=== PATIENT | male | born 1975 | race Caucasian/White ===

== ENCOUNTER → 2019-08-22 12:42 | Outpatient (CLI) | payer BC, SELFPAY ==
--- NOTE | ~2019-08-22 | XR_ITS ---
XR shoulder LT min 2V 08/22/2019 13:22 Indication: Cyst or bone growth on the shoulder Procedure: 4 views of the left shoulder Comparison: 05/22/2005 Findings: There is chronic acromioclavicular separation with multiple adjacent corticated ossific den sities, likely sequela of remote trauma and/or surgery. There is a developing osteophyte along the in ferior margin of the clavicle extending towards the scapula. No acute fracture or traumatic malalignm ent. Impression: 1: No acute bone or joint abnormality. 2: Chronic left acromioclavicular joint separation with associated adjacent loose bodies and developi ng inferior marginal osteophyte at the mid clavicle level. Reviewed, dictated and finalized at location A. AGE CENTER SUPERVISOR Impression: 1: No acute bone or joint abnormality. 2: Chronic left acromioclavicular joint separation with associated adjacent loo se bodies and developing inferior marginal osteophyte at the mid clavicle level .
== END ==
LOC: EXPCRAD 12:49
PROVIDERS: PCP Emergency Medicine; Visit Provider Emergency Medicine
DX: M19.012 Primary osteoarthritis, left shoulder (principal)
CPT/HCPCS: 73030

== ENCOUNTER 2020-03-01 06:02 | Inpatient (IN) | payer BC, SELFPAY ==
[2020-03-01] VITALS (22 sets, daily range): BP systolic 113–186; BP diastolic 70–156; PULSE 46–95; RESP 11–27; TEMP 36.2–37.1; O2SAT 95–100; BMI 39.4
--- NOTE | ~2020-03-01 | XR_ITS ---
EXAMINATION: XR chest 1V portable DATE: 03/01/2020 06:42 INDICATION: Chest pain. TECHNIQUE: A single frontal view of the chest was obtained. COMPARISON: Chest 2 views 08/17/2019, CT abdomen 03/05/2008 FINDINGS: The chest demonstrates clear lungs without pneumonia, pleural effusion, or pneumothorax. Th e heart size is normal. IMPRESSION: 1. No acute cardiopulmonary disease. Reviewed, dictated and finalized at location A.
--- NOTE | ~2020-03-01 | CT_ITS ---
EXAMINATION: CTA chest PE protocol DATE: 03/01/2020 16:45 INDICATION: Chest pain TECHNIQUE: Computed tomography angiography (CTA) of the chest was performed with 100 mL Omnipaque-350 intravenous contrast timed to evaluate the pulmonary arteries. Coronal maximum intensity projection 3D-reconstructions were created by the technologist. Automated exposure control and iterative reconst ruction technique were employed. Exam dose: 1152.59 mGy-cm total exam DLP. COMPARISON: 03/01/2020 portable AP chest FINDINGS: There is diagnostic contrast enhancement of the pulmonary arteries and no evidence of pulmo nary embolism. No thoracic aortic aneurysm. Normal heart size. No pericardial or pleural effusion. There are mild patchy subtle groundglass infiltrates of the lungs which may represent pulmonary edema or pneumonia or allergic phenomenon. The adrenal glands are of normal morphology. Degenerative spurring of the thoracic spine. No suspicious osteolytic or osteoblastic lesions are not ed. IMPRESSION: No evidence of pulmonary embolism Mild subtle patchy groundglass infiltrates of the lungs which may be secondary to edema, pneumonia or allergic gestation. Reviewed, dictated and finalized at Location A. Reviewed, dictated and finalized at location B.
--- NOTE | 2020-03-01 06:08 | ECG_ITS ---
Measurements Intervals [place] Rate: 54 P: -78 [place]: 102 QRS: -2 QRSD: 114 T: 35 QT: 427 QTc: 407 Interpretive Statements ECTOPIC ATRIAL BRADYCARDIA VENTRICULAR PREMATURE COMPLEX INTRAVENTRICULAR CONDUCTION DELAY CANNOT RULE OUT SEPTAL INFARCT, AGE INDETERMINATE INFERIOR ST ELEVATION MYOCARDIAL INJURY- ACUTE BASELINE WANDER- I, III, AVL, AVF ABNORMAL ECG Electronically Signed On 03-01-2020 7:38:22 CDT by Mau Torres D.O.
[2020-03-01] MEDS: ASPIRIN 81 MG CHEWABLE TABLET 324 MG PO (06:16)
[2020-03-01] MEDS: NITROGLYCERIN SL 0.4 MG TABLET SUBLINGUAL (06:17)
--- NOTE | 2020-03-01 06:18 | ED.CHESTPAIN ---
HPI - Chest Pain General Chief Complaint: Chest Pain Stated Complaint: cp, sob Time Seen by Provider: 03/01/20 06:04 History of Present Illness HPI narrative: Patient presents with his for severe chest pain 20 minutes prior to presentation. He woke up with it called out to her. Associated with diaphoresis and shortness of breath. He has never had anything like this before. He points to his sternum. EKG shows ST elevation in the inferior leads and ST depression in the septal leads. STEMI was called. Dr. Yen Crockett is on his way in. He is on 3 medications for the poison conner on his arms. complaint: chest pain Pertinent past history: other (None) Onset (ago): minute(s) Timing of current episode: constant Prior episodes: No Onset: awoke with symptoms Pain location: substernal Pain radiation: none Severity: severe Pain scale (0-10): 6 Relieving factors: nothing Exacerbating factors: nothing Related Data Home Medications Medication Instructions Recorded Confirmed No Home Medications 08/17/19 08/17/19 Allergies Allergy/AdvReac Type Severity Reaction Status Date / Time No Known Allergies Allergy Verified 08/17/19 14:13 Review of Systems Review of Systems: Narrative: CONSTITUTIONAL: Denies fever, chills, but he did have sweats. EYES: Denies visual changes, redness, or discharge. ENT: Denies rhinorrhea, congestion, sore throat, or otalgia. CARDIOVASCULAR: He has chest pain RESPIRATORY: Also has cough or dyspnea. GASTROINTESTINAL: Denies abdominal pain, nausea, vomiting, or diarrhea. GENITOURINARY: Denies dysuria or hematuria. SKIN: Denies rash or itching. MUSCULOSKELETAL: Denies back pain, joint pain, or myalgia. NEUROLOGIC: Denies headache, numbness, or weakness. All systems reviewed & are unremarkable except as noted in HPI and below PMFSH Past Medical History Medical History (Updated 03/01/20 @ 06:57 by Ena Cordova MD) History of obesity Surgical History Surgical History (Updated 03/01/20 @ 06:22 by Ena Cordova MD) History of abdominal surgery Social History Social History Smoking status: Current every day smoker Gender identity (if verbalized by the patient): Male Exam Narrative: Exam Narrative: GENERAL: Uncomfortable, diaphoretic, overweight man in moderate distress. HEAD: Normocephalic, atraumatic. EYES: PERRLA and EOMI. ENT: Nares clear, no rhinorrhea or epistaxis. Mucous membranes moist. NECK: Supple. CHEST: Clear to auscultation. No respiratory distress. Nipple ring on left nipple HEART: Regular rate and rhythm. No murmur heard. Normal peripheral pulses. ABDOMEN: Soft, nontender, nondistended, normal active bowel sounds. EXTREMITIES: Normal range of motion. No edema. SKIN: Warm, moist, rash on the arms NEURO: No focal deficits. Alert and oriented x3. PSYCH: Anxious. Course Reevaluation(s) Reevaluation #1: Patient's pain is down to a 1, and he got his morphine. He has some nausea, gave the Zofran. He had the Brilinta, heparin, and the aspirin. He recently had a stress test that was positive. He and his both understand the process of the cardiac catheterization. We are still awaiting the electrotherapist for the Showroom Sales Assistant. The patient has improved dramatically. Date: 03/01/20 Time: 06:40 Consultations Consultation #1: Dr. Yoon was called and is coming in to do the cardiac cath. Date: 03/01/20 Time: 06:24 Vital Signs Vital signs: Vital Signs Pulse Rate 60 03/01/20 06:05 Respiratory Rate 27 H 03/01/20 06:05 Blood Pressure 186/156 H 03/01/20 06:05 Pulse Oximetry 100 03/01/20 06:05 Temperature 98.7 F 03/01/20 06:33 Pulse Rate 58 L 03/01/20 06:33 Respiratory Rate 14 03/01/20 06:33 Blood Pressure 153/91 H 03/01/20 06:33 Pulse Oximetry 96 03/01/20 06:33 MDM - Chest Pain Differential Diagnosis Differential diagnosis: Likely st elevation myocardial infarction [employer]
[2020-03-01] MEDS: HEPARIN SODIUM 5,000 UNITS/ML VIAL 5000 UNITS IV PUSH (06:19)
[2020-03-01] MEDS: TICAGRELOR 90 MG TABLET 180 MG PO (06:20)
--- NOTE | 2020-03-01 06:22 | PC.NURSE ---
0622 0.4 mg sl nitro administered cp at a 1
[2020-03-01] MEDS: MORPHINE SULFATE 2 MG/ML INJ IV PUSH (06:35)
[2020-03-01 06:40] LABS: Basophils Absolute Auto 0.1 K/mm3 (0.0-0.1); Basophils Percent Auto 0.6 % (0.2-1.2); Eosinophils Absolute Auto 0.3 K/mm3 (0-0.3); Eosinophils Percent Auto 1.3 % (0-4.4); Hematocrit 46.4 % (42.0-52.0); Hemoglobin 16.2 g/dL (14.0-18.0); Immature Granulocyte Absolute 0.46 K/mm3 (0.00-0.031); Immature Granulocyte Percent A 2.1 % (0-0.5); Lymphocytes Absolute Auto 6.84 K/mm3 (0.9-3.2); Lymphocytes Percent Auto 30.9 % (18.3-44.2); Mean Corpuscular HGB Conc 34.9 g/dl (32-36); Mean Corpuscular Volume 85.9 fl (80-100); Monocytes Absolute Auto 1.8 K/mm3 (0.1-0.6); Monocytes Percent Auto 7.9 % (2.6-8.5); Neutrophils Absolute Auto 12.7 K/mm3 (1.3-6.7); Neutrophils Percent Auto 57.2 % (45.5-73.1); Platelet Count Result 318 k/mm3 (150-375); Red Cell Distribution Width 13.5 % (11.5-14.5); White Blood Count 22.2 K/mm3 (4.5-10.0)
[2020-03-01 06:52] LABS: Alanine Aminotransferase 33 U/L (4-50); Albumin Level 4.4 g/dL (3.5-5.1); Alkaline Phosphatase 67 U/L (38-126); Aspartate Amino Transferase 24 U/L (17-59); Bilirubin,Total 0.3 mg/dL (0.2-1.3); Blood Urea Nitrogen 15 mg/dL (9-20); Calcium 9.2 mg/dL (8.4-10.2); Carbon Dioxide 25 mmol/L (22-30); Chloride 105 mmol/L (98-107); Cholesterol 165 mg/dL (0-200); Estimated Glomerular Filt Rate > 60; Glucose 122 mg/dL (75-110); HDL Direct 43 mg/dL; Potassium 3.7 mmol/L (3.4-5.0); Sodium 139 mmol/L (137-145); Triglycerides 166 mg/dL (<150)
[2020-03-01 07:02] LABS: LDL Cholesterol Direct 97 mg/dL
[2020-03-01 07:03] LABS: Troponin I < 0.012 ng/mL (0.000-0.034)
[2020-03-01 07:04] LABS: Prothrombin Time 12.8 Seconds (11.1-14.7)
[2020-03-01 07:05] LABS: Partial Thromboplastin Time 22.2 SECONDS (22.3-36.8)
--- NOTE | 2020-03-01 07:14 | PM.CNCAR ---
Assessment and Plan Additional Plan INF WALL STEMI: plan heparin, Ticagerelor, ASA and emeregency [facility] History of Present Illness History of Present Illness Consult date/time: 03/01/20 07:14 Consult reason: chest pain Reason For Visit: STEMI Narrative: acute resterosternal chest pain sever, pressure like, non radiating started at 5:30 AM wake him from sleep, no precipitating factor, improved with IV morphine, associated with sweating. Similar pain 6 months ago and had stress test with minor abnormalities then had no pain since then. Review of Systems Review of Systems: All systems reviewed & are unremarkable except as noted in HPI and below PMFSH Past Medical History Medical History (Updated 03/01/20 @ 06:57 by Ena Cordova MD) History of obesity Surgical History Surgical History (Updated 03/01/20 @ 06:22 by Ena Cordova MD) History of abdominal surgery Social History Social History Smoking status: Current every day smoker Gender identity (if verbalized by the patient): Male Meds Home Medications and Allergies Home Medications Medication Instructions Recorded Confirmed Type aspirin [Adult Aspirin Regimen] 81 mg PO DAILY 03/01/20 03/01/20 History Allergies Allergy/AdvReac Type Severity Reaction Status Date / Time No Known Allergies Allergy Verified 08/17/19 14:13 Vital Signs Vital Signs - 24 hr 03/01/20 06:05 03/01/20 06:09 03/01/20 06:15 Temperature Pulse Rate 60 55 L 58 L Respiratory Rate 27 H 17 Blood Pressure 186/156 H 166/99 H Pulse Oximetry 100 98 03/01/20 06:33 03/01/20 06:40 03/01/20 07:01 Temperature 37.1 C Pulse Rate 58 L 47 L 49 L Respiratory Rate 14 12 12 Blood Pressure 153/91 H 150/86 H 153/86 H Pulse Oximetry 96 98 95 Exam Const: General: comfortable and no acute distress Other: Able to lie flat HENMT: General nose exam: Normal nares present and no epistaxis Mouth: Yes moist mucous membranes Eyes: Sclera: sclerae normal Pupils: Equal, round and reactive pupils present Neck: Neck: supple and no JVD Carotids: no bruits Resp: Auscultation: clear to auscultation bilaterally and lung sounds not diminished Other: No chest wall tenderness Cardio: Rate: regular rate Rhythm: regular rhythm Heart sounds: no gallops, no murmurs and no rubs GI: GI Palp: Yes Soft to palpation and No Tenderness to palpation present (GI) Auscultation: normal bowel sounds Skin: General skin exam: normal color, rashes and/or lesions noted and no erythema Other: Warm Neuro: Cranial nerves: Yes Equal, round and reactive pupils present Speech: normal speech Other: No obvious focal deficit or facial asymmetry Extrem: General: no edema Other: Normal capillary refills Intact distal pulses. Results Labs and Meds Result diagrams: 03/01/20 06:25 03/01/20 06:25 Lab results: Cardiac Enzymes 03/01/20 Range/Units 06:25 AST 24 (17-59) U/L Troponin I < 0.012 (0.000-0.034) ng/mL Coagulation 03/01/20 Range/Units 06:25 PT 12.8 (11.1-14.7) Seconds APTT 22.2 L (22.3-36.8) SECONDS Lipids 03/01/20 Range/Units 06:25 Triglycerides 166 H (<150) mg/dL Cholesterol 165 (0-200) mg/dL CBC 03/01/20 Range/Units 06:25 WBC 22.2 H (4.5-10.0) K/mm3 RBC 5.40 (4.6-6.20) M/mm3 Hgb 16.2 (14.0-18.0) g/dL Hct 46.4 (42.0-52.0) % Plt Count 318 D (150-375) k/mm3 Lymph # (Auto) 6.84 H (0.9-3.2) K/mm3 [place] # (Auto) 1.8 H (0.1-0.6) K/mm3 Eos # (Auto) 0.3 (0-0.3) K/mm3 Baso # (Auto) 0.1 (0.0-0.1) K/mm3 Comprehensive Metabolic Panel 03/01/20 Range/Units 06:25 Sodium 139 (137-145) mmol/L Potassium 3.7 (3.4-5.0) mmol/L Chloride 105 (98-107) mmol/L Carbon Dioxide 25 (22-30) mmol/L BUN 15 (9-20) mg/dL Creatinine 1.00 (0.7-1.3) mg/dL Glucose 122 H (75-110) mg/dL Calcium 9.2 (8.4-10.2) mg/dL AST 24
--- NOTE | 2020-03-01 07:36 | WPDCARDPROC ---
Cardiac Cath Procedure Note Date of procedure:: 03/01/20 Performing physician:: Naren Yoon MD Indication:: STEMI inf wall Brief clinical history:: acute chets pain at 5:30, pain improved with morphine but still mild Procedure Procedure performed:: Coronary angiogram Sedation/Medication given:: moderate sedation versed fentanyl Access site:: Rt radial Estimated blood loss:: 10 ml Procedure note:: access obtained with modified Seildinger technique and 6 F sheath coronary angiogram was obtained with TIG catheter Findings:: Left main: normal gives LAD and LCX LAD: large vessel that gives large early/high diagonal. LAD and diagonal with no obstructive disease LCX: large non dominant gives small OM and has no obstructive disease RCA: Ectatic dominant vessel with slow flow, gives rPDA and rPL with no obstructive disease Conclusion:: No obstructive CAD coronary ectasia of RCA with slow flow
[2020-03-01 07:45] LABS: Activated Clotting Time 208 sec (74-137)
--- NOTE | 2020-03-01 08:06 | ECG_ITS ---
Measurements Intervals [place] Rate: 46 P: 21 MD: 142 QRS: 9 QRSD: 85 T: -1 QT: 445 QTc: 392 Interpretive Statements SINUS BRADYCARDIA BORDERLINE T WAVE ABNORMALITY- INFERIOR LEADS BORDERLINE ECG Electronically Signed On 03-01-2020 10:48:23 CDT by Mau Torres D.O.
--- NOTE | 2020-03-01 08:35 | ECHO_ITS ---
Patient Info Name: Ifeanyi Ramon Age: 45 years : 1975 Gender: Male Ht: 74 in Wt: 300 lbs BSA: 2.72 m2 HR: 48 bpm BP: 132 / 76 mmHg Heart Rhythm: Bradycardia Technical Quality: Good Exam Date: 03/01/2020 10:12 AM Exam Location: [facility] Patient Status: Inpatient Admit Date: 03/01/2020 Staff Ordering Physician: Josi Garcia APRN Learning Operations Specialist: Gallo Rodríguez RDCS Attending Provider: Naren Yoon MD Referring Physician: Jose BOJORQUEZ; Exam Type: CA echo dop color flow w con Study Info Indications I22.1 - Subsequent ST elevation (STEMI) myocardial infarction of inferior wall R07.9 - Chest pain, unspecified Complete two-dimensional, color flow and Doppler transthoracic echocardiogram is performed with contrast to opacify the left ventricle and to improve the deliniation of the left ventricle endocardial borders. Contrast/Agitated Saline Contrast/Ag. Saline: Definity Amount: 3.00 ml Existing IV Access: Yes History/Risk Factors Inferior STEMI w/ clean cath; SOB, bradycardia. Summary 1. Left ventricular systolic function is normal, estimated at 50-55%. 2. There is moderately increased left ventricular wall thickness. 3. There is mild mitral valve calcification. 4. There is moderate aortic valve sclerosis. 5. The aortic valve is trileaflet. Left Ventricle Left ventricular chamber dimension is normal. Left ventricular systolic function is normal, estimated at 50-55%. There is moderately increased left ventricular wall thickness. Left ventricular septal wall motion is normal. The left ventricular diastolic function is normal. Right Ventricle Right ventricular chamber dimension is normal. Right ventricular systolic function is normal. Left Atria Left atrial chamber dimension is normal. Right Atria Right atrial chamber dimension is normal. Atrial Septum Intact interatrial septum visualized by color flow imaging. Aortic Valve The aortic valve is trileaflet. There is moderate aortic valve sclerosis. There is no aortic valve stenosis. There is no aortic valve regurgitation. Pulmonic Valve The pulmonic valve is normal. There is no pulmonic valve stenosis. There is no pulmonic regurgitation. Mitral Valve The mitral valve has normal leaflets. There is no mitral valve stenosis. There is no mitral valve regurgitation. There is mild mitral valve calcification. Tricuspid Valve The tricuspid valve leaflets are normal. There is no significant tricuspid valve stenosis. There is no tricuspid valve regurgitation. Pericardium/Pleural The pericardium appears normal. There is no pericardial effusion. Inferior Vena Cava Normal inferior vena cava with >50% collapse upon inspiration consistent with normal right atrial pressure, 5 mmHg. Aorta The aortic root size at the sinus of Valsalva is normal. The prox ascending aorta size is normal. Left Ventricular Outflow Tract Name Value Normal LVOT 2D LVOT Diameter 1.98 cm LVOT Doppler LVOT Peak Gradient 3 mmHg L
[2020-03-01 10:01] LABS: Activated Clotting Time 136 sec (74-137)
[2020-03-01] MEDS: PERFLUTREN LIPID MICROSPHERES 1.5 ML VIAL DILUTED TO 10 ML TOTAL VOLUME (10:40)
--- NOTE | 2020-03-01 12:25 | ECG_ITS ---
Measurements Intervals [place] Rate: 55 P: 16 NH: 141 QRS: -5 QRSD: 85 T: 14 QT: 423 QTc: 406 Interpretive Statements SINUS BRADYCARDIA BORDERLINE ECG Electronically Signed On 03-01-2020 14:08:44 CDT by Mau Torres D.O.
[2020-03-01] MEDS: POTASSIUM CHLORIDE 20 MEQ TABLET 40 MEQ (13:40)
[2020-03-01] MEDS: lisinopriL 5 MG TABLET PO (13:47)
[2020-03-01] MEDS: POTASSIUM CHLORIDE 20 MEQ TABLET 40 MEQ PO (13:58)
--- NOTE | 2020-03-01 15:18 | PC.NURSE ---
This patient, Ifeanyi Ramon II, was received from [facility] on 03/01/20 at 1518. Personal belongings list checked and signed. Patient/family oriented to unit policies and routines
[2020-03-01] MEDS: SODIUM CHLORIDE 0.9% IV 1,000 ML 100 ML IV CONT (18:47)
[2020-03-01] MEDS: TICAGRELOR 90 MG TABLET PO (20:26)
[2020-03-01] MEDS: ACETAMINOPHEN 500 MG TABLET 1000 MG PO (22:10)
[2020-03-01] MEDS: MELATONIN 3 MG TABLET PO (22:11)
[2020-03-02] VITALS (16 sets, daily range): BP systolic 115–155; BP diastolic 66–94; PULSE 45–88; RESP 14–20; TEMP 35.7–36.7; O2SAT 96–100
[2020-03-02] MEDS: SODIUM CHLORIDE 0.9% IV 1,000 ML 100 ML IV CONT (04:27)
[2020-03-02 04:50] LABS: Blood Urea Nitrogen 12 mg/dL (9-20); Calcium 7.8 mg/dL (8.4-10.2); Carbon Dioxide 25 mmol/L (22-30); Chloride 107 mmol/L (98-107); Estimated CRCL calculation 147 ml/min; Estimated Glomerular Filt Rate > 60; Glucose 99 mg/dL (75-110); Magnesium 1.8 mg/dL (1.6-2.3); Potassium 3.9 mmol/L (3.4-5.0); Sodium 138 mmol/L (137-145)
[2020-03-02 05:04] LABS: Troponin I 0.381 ng/mL (0.000-0.034)
--- NOTE | 2020-03-02 08:00 | ECG_ITS ---
Measurements Intervals [place] Rate: 56 P: 16 CO: 143 QRS: -8 QRSD: 85 T: -23 QT: 431 QTc: 419 Interpretive Statements SINUS BRADYCARDIA VENTRICULAR PREMATURE COMPLEX T WAVE ABNORMALITY IN INFERIOR LEADS- CONSIDER ISCHEMIA ABNORMAL ECG Electronically Signed On 03-02-2020 10:51:01 CDT by Mau Torres D.O.
[2020-03-02] MEDS: ASPIRIN 81 MG ENTERIC TABLET PO (08:31)
[2020-03-02] MEDS: TICAGRELOR 90 MG TABLET PO ×2 (08:31→21:11)
[2020-03-02] MEDS: lisinopriL 5 MG TABLET PO (08:31)
--- NOTE | 2020-03-02 14:22 | PM.PNCARD ---
Progress Note: A&P Assessment and Plan (1) Acute PA: Qualifiers: Involved coronary artery: unspecified coronary artery Myocardial infarction type: ST elevation myocardial infarction Qualified Code(s): I21.3 - ST elevation (STEMI) myocardial infarction of unspecified site Code(s): I21.9 - Acute myocardial infarction, unspecified Status: Acute Assessment and Plan: Inferior wall STEMI 03/01/2020 Emergent cardiac catheterization: left main into was normal and gave rise to the LAD and left circumflex. LAD was a large vessel that gave large early high diagonal. LAD and diagonal with no obstructive disease. Left circumflex large non dominant which gave rise to small obtuse marginal with no obstructive disease. Right coronary artery was an ectatic dominant vessel with slow flow which gave rise to the right PDA and right posterior lateral with no obstructive disease. Conclusion no obstructive coronary disease with coronary ectasia of the RCA with slow flow. Echocardiogram 03/01/2020: LV systolic functions normal with an estimated ejection fraction 50-55%. Moderately increased LV wall thickness. Mild mitral valve calcification. Moderate aortic valve sclerosis. Aortic valve is trileaflet. CTA 03/01/2020: no evidence of pulmonary embolism. Mild subtle patchy ground-glass infiltrates of the lung which may be secondary to edema, pneumonia or allergic gestation. Troponin: Initial troponin was negative the 3 hour troponin was 2.90. The 6 hour troponin was 3.710. Troponin check this morning at 0.381. EKG personally reviewed from this morning is a sinus bradycardia at a rate of 56 beats per minute. There were ventricular premature can't complex. T-wave abnormality in the inferior leads. Even though no culprit lesion was found, his symptoms, EKG and troponin elevation are consistent the STEMI. He was started on aspirin and Brilinta. Lisinopril was added yesterday for elevated blood pressure. He is pain free today. No complaints of shortness of breath or lightheadedness. No palpitations. monitor technician reveals sinus rhythm to sinus bradycardia with occasional PVCs. Continue aspirin, Brilinta and lisinopril. Will add diltiazem 30 mg every 8 hours as well as a statin. Increase activity. He may shower with telemetry. Additional Plan Will will consult community development officer for the findings on the CT scan. He has been taking his home medication for the poison conner. Anticipate discharge tomorrow if he remains stable. Plan discussed with Dr. Hampton [id number] 03/02/2020 Subjective Date/time seen: 03/02/20 14:22 Interval history: Follow-up for: STEMI with no obstructive coronary artery disease found. Coronary ectasia of the RCA with slow flow was found. Elevated blood pressure. Date of service: Subjective: Denied chest discomfort, shortness of breath, lightheadedness or palpitations. Review of Systems Constitutional: Constitutional: Denies fatigue, Denies fever(s) and Denies headache(s) Eyes: Eyes: Denies blurry vision ENT: Reports Normal hearing present, Denies epistaxis and Denies nasal congestion Cardiovascular: Cardiovascular: Denies chest pain, Denies rapid heart rate, Denies irregular heart rhythm, Denies leg edema, Denies lightheadedness, Denies dyspnea, Denies dyspnea on exertion, Denies orthopnea and Denies paroxysmal nocturnal dyspnea Respiratory: Respiratory: Denies chest congestion and Denies dyspnea on exertion Gastrointestinal: Gastrointestinal: Denies heartburn, Denies nausea and Denies vomiting Musculoskeletal: Musculoskeletal: Denies back pain and Denies myalgias Integumentary/Breasts: Skin/Breast: Reports pruritus ( From poison conner on forearms.) Neurologic: Reports Normal hearing present, Denies dizziness, Denies syncope and Denies frequent falls Psychiatric: Psychiatric: Denies anxiety and Denies depression Endocrine: En
[2020-03-02] MEDS: dilTIAZem HCL 30 MG TABLET PO (17:25)
--- NOTE | 2020-03-02 19:47 | PHAR ---
The patient's home meds of Triamcinolone 0.1% ointment, Cephalexin 500mg and Methylprednisolone dosepak have been verified.
[2020-03-02] MEDS: ROSUVASTATIN 10 MG TABLET 20 MG PO (21:11)
[2020-03-02] MEDS: MELATONIN 3 MG TABLET PO (21:51)
[2020-03-02] MEDS: diphenhydrAMINE HCl CAP 25 MG CAPSULE PO (21:51)
[2020-03-03] VITALS (8 sets, daily range): BP systolic 123–138; BP diastolic 64–85; PULSE 44–66; RESP 16–20; TEMP 35.7–36.4; O2SAT 98–100
[2020-03-03 04:41] LABS: Blood Urea Nitrogen 17 mg/dL (9-20); Calcium 8.9 mg/dL (8.4-10.2); Carbon Dioxide 27 mmol/L (22-30); Chloride 102 mmol/L (98-107); Estimated CRCL calculation 131 ml/min; Estimated Glomerular Filt Rate > 60; Glucose 110 mg/dL (75-110); Potassium 4.3 mmol/L (3.4-5.0); Sodium 136 mmol/L (137-145)
--- NOTE | 2020-03-03 05:26 | PC.NURSE ---
Patient does not want to take 0600 and 0630 meds. States he will take them with his breakfast.
[2020-03-03] MEDS: ASPIRIN 81 MG ENTERIC TABLET PO (09:38)
[2020-03-03] MEDS: TICAGRELOR 90 MG TABLET PO (09:38)
[2020-03-03] MEDS: lisinopriL 5 MG TABLET PO (09:39)
[2020-03-03] MEDS: ISOSORBIDE MONONITRATE 30 MG TAB.ER.24H PO (10:42)
--- NOTE | 2020-03-03 11:52 | PM.DS ---
DS: Admitting Diagnosis Admitting Diagnosis Admitting Diagnosis: ST elevation (STEMI) myocardial infarction of unspecified site DS: Discharge Diagnosis Discharge Diagnosis (1) Acute OK: Qualifiers: Involved coronary artery: unspecified coronary artery Myocardial infarction type: ST elevation myocardial infarction Qualified Code(s): I21.3 - ST elevation (STEMI) myocardial infarction of unspecified site Code(s): I21.9 - Acute myocardial infarction, unspecified Status: Acute Assessment and Plan: Inferior wall STEMI 03/01/2020 Emergent left heart cardiac catheterization 03/01/2020 with the findings of no obstructive coronary disease with coronary ectasia of the RCA with slow flow. Even though no culprit lesion was found, his symptoms, EKG and troponin elevation are consistent STEMI. He was started on aspirin and Brilinta. Lisinopril was added for elevated blood pressure. Rosuvastatin was added. Attempted diltiazem 30 mg every 8 hours however became more bradycardic. Diltiazem discontinued. Isosorbide mononitrate was added. Blood pressure remained stable. Discharged home in stable and pain-free condition. (2) Bradycardia: Code(s): R00.1 - Bradycardia, unspecified Status: Acute Assessment and Plan: Avoid any AV cade blocking agents. (3) Abnormal CT scan, chest: Code(s): R93.89 - Abnormal findings on diagnostic imaging of other specified body structures Status: Acute Assessment and Plan: Consult per Dr Mcnamara: Benign findings of mild ground glass opacities at the bases of the lungs which could be transient atelectesis vs pulmonary edema. No signs of pneumonia or infection. CTA rule out P.E. No further diagnostic testing or followup is needed. Appreciate consult DS: Summary Hospital Course Reason for hospitalization: Chest pain STEMI Hospital Course: 45-year-old male presented to the emergency room with acute resterosternal chest pain which was severe, pressure like, non radiating that started at 5:30 AM on the day of admission that awakened him from sleep, no precipitating factor, improved with IV morphine, associated with sweating. Similar pain 6 months ago. He had a stress test with minor abnormalities then had no pain since then. EKG revealed ST-elevation in the inferior leads with reciprocal changes. He was taken emergently to the cardiac catheterization lab by . Findings: Left main: normal gives LAD and LCX. LAD: large vessel that gives large early/high diagonal. LAD and diagonal with no obstructive disease. LCX: large non dominant gives small OM and has no obstructive disease. RCA: Ectatic dominant vessel with slow flow, gives rPDA and rPL with no obstructive disease. CTA 03/01/2020: no evidence of pulmonary embolism. Mild subtle patchy ground-glass infiltrates of the lung which may be secondary to edema, pneumonia or allergic gestation. Blood pressure was elevated . Lisinopril was added. He was started on aspirin and Brilinta. Echocardiogram 03/01/2020: LV systolic functions normal with an estimated ejection fraction 50-55%. Moderately increased LV wall thickness. Mild mitral valve calcification. Moderate aortic valve sclerosis. Aortic valve is trileaflet. Initial troponin was negative. The 3 hour troponin was 2.90. The 6 hour troponin was 3.710. Troponin trended down to 0.381. EKG 03/02/2020: sinus bradycardia at a rate of 56 beats per minute. There were ventricular premature ventricular complexes. T-wave abnormality in the inferior leads. Rosuvastatin was added. Low-dose diltiazem was attempted however he became more bradycardic. This was discontinued. Isosorbide mononitrate was initiated. Blood pressure remained stable. He remained pain-free. Vital signs were stable. Right wrist site was without swelling or bl
--- NOTE | 2020-03-03 13:02 | PM.CNPUL ---
Assessment and Plan Assessment and plan (1) Abnormal CT scan, chest: Code(s): R93.89 - Abnormal findings on diagnostic imaging of other specified body structures Status: Acute Assessment and Plan: Benign findings of mild ground glass opacities at the bases of the lungs which could be transient atelectesis vs pulmonary edema. No signs of pneumonia or infection. CTA rule out P.E. No further diagnostic testing or followup is needed. History of Present Illness History of Present Illness Consult date: 03/03/20 Chief complaint: STEMI Narrative: 45 y/o obese male, prior smoker was admitted with chest tightness, diaphrosis and dyspnea yesterday and had inferior STEMI although cardiac cath showed no significant obstruction or CAD. He deneis productive cough,fever, chills night sweats, body aches or other symptoms and feels back to normal today. He is being discharge home. I was consulted for an abnormal CT chest which showed some minor ground glass opacities which are likely due to atelectasis, some pulmonary edema and are not concerning at all. Review of Systems Review of Systems: All systems reviewed & are unremarkable except as noted in HPI and below PMFSH Past Medical History Medical History (Updated 03/03/20 @ 13:08 by Stew Mcnamara MD) History of obesity Surgical History Surgical History (Updated 03/01/20 @ 06:22 by Ena Cordova MD) History of abdominal surgery Family History Family History (Updated 03/01/20 @ 16:14 by Daphnie Huggins RN) Father Diabetes mellitus Social History Social History Smoking packs per day: 2 Smoking cigarettes per day: 40.0 Years smoked: 35 Smoking pack-years: 70.00 Smoking status: Former smoker Tobacco type: cigarettes Alcohol intake: current Drinks per week: 1 Substance use: current Substance use type: marijuana Gender identity (if verbalized by the patient): Male Spiritual care concerns: No Meds Home Medications and Allergies Home Medications Medication Instructions Recorded Confirmed Type aspirin [Adult Aspirin Regimen] 81 mg PO DAILY 03/01/20 03/01/20 History cephalexin 500 mg PO Q8H 03/01/20 03/01/20 History methylprednisolone 4 mg PO DIRECTED 03/01/20 03/01/20 History triamcinolone acetonide 2 applic TOPICAL DAILY 03/01/20 03/01/20 History isosorbide mononitrate 30 mg PO QAM #30 tablet 03/03/20 Rx lisinopril 5 mg PO QAM #30 tablet 03/03/20 Rx rosuvastatin [Crestor] 20 mg PO HS #30 tablet 03/03/20 Rx ticagrelor [Brilinta] 90 mg PO Q12HR #60 tablet 03/03/20 Rx Allergies Allergy/AdvReac Type Severity Reaction Status Date / Time No Known Allergies Allergy Verified 08/17/19 14:13 Vital Signs Vital Signs - 24 hr 03/02/20 14:00 03/02/20 16:00 03/02/20 18:00 Temperature 35.7 C L Pulse Rate 57 L 72 76 Respiratory Rate 14 Blood Pressure 138/87 Pulse Oximetry 98 03/02/20 19:24 03/02/20 20:00 03/02/20 21:57 Temperature 36.6 C Pulse Rate 87 57 L 45 L Respiratory Rate 20 Blood Pressure 155/94 H Pulse Oximetry 99 03/02/20 23:32 03/03/20 00:00 03/03/20 02:00 Temperature 36.2 C L Pulse Rate 45 L 48 L 44 L Respiratory Rate 18 Blood Pressure 115/66 Pulse Oximetry 96 03/03/20 04:00 03/03/20 05:24 03/03/20 08:00 Temperature 36.4 C Pulse Rate 47 L 45 L 49 L Respiratory Rate 16 20 Blood Pressure 123/64 Pulse Oximetry 98 100 03/03/20 08:30 03/03/20 10:00 03/03/20 12:47 Temperature 35.7 C L 35.7 C L Pulse Rate 57 L 63 66 Respiratory Rate 20 20 Blood Pressure 138/85 132/84 Pulse Oximetry 100 98 Exam Const: General: comfortable and no acute distress Eyes: General: appearance normal, both eyes and all related structures Neck: Neck: supple and no JVD Resp: Auscultation: clear to auscultation bilaterally, no crackles, no rales, no rhonchi, no wheezes and diminished lung sounds Cardio: Rate: regu
== END 2020-03-03 13:30 | disposition home or self-care (01) | DRG 282 ==
LOC: ANHED 06:18 → ANHICU 07:09 → ANHIMU 03-02 15:18 → ANHICU 03-08 12:54 → ANHIMU 03-08 12:54
PROVIDERS: Nurse Practitioner Adult Health; Specialist; Admitting Provider Internal Medicine Interventional Cardiology; Emergency Provider Emergency Medicine; PCP Emergency Medicine; Visit Provider Internal Medicine Cardiovascular Disease
PROC: 4A023N7 Measurement of Cardiac Sampling and Pressure, Left Heart, Percutaneous Approach (ICD-10-PCS; CPT 93452; principal; 2020-03-01 06:35)
DX: I21.3 ST elevation (STEMI) myocardial infarction of unspecified site (principal); D72.829 Elevated white blood cell count, unspecified; R00.1 Bradycardia, unspecified; R93.89 Abnormal findings on diagnostic imaging of other specified body structures; E66.9 Obesity, unspecified; Z68.39 Body mass index [BMI] 39.0-39.9, adult; Z87.891 Personal history of nicotine dependence
CPT/HCPCS: 36415; 71045; 71275; 80048; 80053; 80061; 83735; 84484; 85025; 85610; 85730; 86850; 86900; 86901; 93005; 93458; 96374; 96375; 99285; A9270; C1887; C1894; C8929; J1644; J2250; J2270; J3010; J7030; J7040; Q9957; Q9967

== ENCOUNTER 2020-10-15 09:17 | Outpatient (CLI) | payer BC, SELFPAY ==
--- NOTE | 2020-11-01 09:09 | WPDHOMESLEEP ---
Sleep Study - Home Unattended Date of Study: 10/15/20 Ordering Provider: Grey Hampton MD Interpreting Provider: Laisha Nichols MD Home Sleep Study Type: Apnea Link Air Height: 1.88 m Weight: 136.078 kg Body Mass Index: 38.5 Neck Circumference (inches): 20.5 [place]: 3 Reason for Sleep Study Poor quality sleep, does not feel that he can get enough sleep Sleep History Ifeanyi Ramon II is a 45 year old man with loud snoring that frequently bothers others. Dr Hampton notes that he has a history of obstructive sleep apnea, however was not tolerant of PAP therapy. He rarely awakens at night with heartburn, belching or coughing. He does not awaken from sleep feeling short of breath. He denies trouble sleeping with a cold, does not gasp for breath at night, does not have breathing problems at night observed by others. He does not sweat excessively at night or notices heart pounding or beating irregularly night. He does not fall asleep during the day or involuntarily. He never falls asleep while driving. He does not have loss of muscle tone with strong emotion and does not have daytime difficulties due to excessive sleepiness. He is a mobile crane operator/ mortgage clerk. He does not feel paralyzed on waking or falling asleep, does not have vivid dreamlike scenes upon awakening or falling asleep and does not feel afraid to go to sleep. He does not have nightmares. He does not remember having dreams. He does not have racing thoughts. He does not feel sad or depressed. He rarely feels anxiety. He does not have muscular tension. He does not notice parts of his body jerking. He does not kick at night or have crawling or aching feelings in his legs. He does not have any kind of leg pain at night. He denies morning jaw pain and does not grind his teeth during sleep. He is not bothered by pain during the day or awakened by pain at night. He constantly wakes up feeling stiff in the morning with sore achy muscles and pain in the spine. He has fatigue. He has gained 20 lb in the last year. Normal bedtime is 9:00 p.m. falling asleep within 15 minutes waking 3-4 times at night to urinate, will roll over and fall asleep again within minutes. He wakes in the morning at 5:00 a.m.. He estimates 8 hours of sleep at night. Weekend schedule shows he goes to bed 1 hour later 10:00 p.m. and wakes at 7:00 a.m.. He does not generally take naps. A short nap may be refreshing. He occasionally awakens feeling refreshed. He does not have morning headaches. Habits: Former tobacco use. Caffeine he drinks coffee, tea and soda. No alcohol. [facility] Past Medical History Medical History (Updated 11/01/20 @ 09:20 by Laisha Nichols MD) Acute [place] History of obesity Surgical History Surgical History (Updated 03/04/20 @ 08:53 by Enzo Pedersen) History of abdominal surgery Family History Family History (System 03/04/20 @ 08:53 by Enzo Pedersen) Mother Patient's mother is in good health Sibling Patient's sister is in good health Father Family history of type 1 diabetes mellitus, Onset Age: 53 Patient's father is Father Diabetes mellitus Social History Social History (System 03/04/20 @ 08:53 by Enzo Pedersen) Smoking packs per day: 2 Smoking cigarettes per day: 40.0 Years smoked: 35 Smoking pack-years: 70.00 Smoking status: Former smoker Tobacco type: cigarettes Alcohol intake: current Drinks per week: 1 Substance use: current Substance use type: marijuana Gender identity (if verbalized by the patient): Male Spiritual care concerns: No Medications Home Medications Medication Instructions Recorded Confirmed Type aspirin [Adult Aspirin Regimen] 81 mg PO DAILY 03/01/20 03/01/20 History cephalexin 500 mg PO Q8H 03/01/20 03/01/20 History methylprednisolone 4 mg PO DIRECTED 03/01/20 03/01/20 History triamcinolone acetonide 2 applic TOPICAL DAILY 03/01/20 03/01/20 History isosorbide mononitrate 30 m
[2020-11-01 09:25] VITALS: BMI 38.5
== END 2020-10-15 09:18 | disposition home or self-care (01) ==
LOC: ANHCSM 09:17
PROVIDERS: Visit Provider Internal Medicine Cardiovascular Disease
DX: G47.33 Obstructive sleep apnea (adult) (pediatric) (principal)
CPT/HCPCS: 95806

== ENCOUNTER → 2020-11-01 13:11 | Outpatient (CLI) | payer BC, SELFPAY ==
--- NOTE | ~2020-11-01 | XR_ITS ---
XR chest 2V DATE: 11/01/2020 13:24 INDICATION: Cough TECHNIQUE: 2 views COMPARISON: 03/01/2020 CT pulmonary scan 03/01/2020 portable AP chest FINDINGS: Normal heart size. No hilar or mediastinal enlargement. No pulmonary infiltrate or consolid ation, pleural effusion or pulmonary vascular congestion or pneumothorax is detected. Chronic left acromioclavicular separation. Degenerative spurring of the thoracic spine. IMPRESSION: No active cardiopulmonary disease Reviewed, dictated and finalized at location B.
== END ==
PROVIDERS: PCP Emergency Medicine; Visit Provider Emergency Medicine
DX: R05 Cough (principal)
CPT/HCPCS: 71046

== ENCOUNTER → 2020-11-02 06:55 | Outpatient (CLI) | payer BC, SELFPAY ==
[2020-11-03 02:02] LABS: SARS-CoV-2 RNA PCR Negative
== END ==
PROVIDERS: PCP Emergency Medicine; Visit Provider Emergency Medicine
DX: Z20.822 Contact with and (suspected) exposure to COVID-19 (principal); J06.9 Acute upper respiratory infection, unspecified; R05 Cough
CPT/HCPCS: C9803; U0003; U0005

== ENCOUNTER → 2020-12-27 01:22 | Outpatient (CLI) | payer BC, SELFPAY ==
[2020-12-27 18:48] LABS: SARS-CoV-2 RNA PCR Negative
== END ==
PROVIDERS: PCP Emergency Medicine; Visit Provider Internal Medicine Critical Care Medicine
DX: Z01.812 Encounter for preprocedural laboratory examination (principal); Z20.822 Contact with and (suspected) exposure to COVID-19
CPT/HCPCS: C9803; U0003; U0005

== ENCOUNTER 2020-12-29 08:07 | Outpatient (CLI) | payer BC, SELFPAY ==
--- NOTE | 2021-01-14 12:26 | WPDSLEEPSTUD ---
Sleep Study Date of Study: 12/29/20 Ordering Provider: Jose Angel Bright APRN Interpreting Physician: Laisha Nichols MD Sleep Study Type: CPAP Titration Height: 1.88 m Weight: 136.531 kg Body Mass Index: 38.6 Neck Circumference (inches): 17.5 [place]: 5 Reason for Sleep Study 10/15/2020 home sleep test ApneaLink; severe obstructive sleep apnea, AHI 32.1, 8% of the study with Yobani Means respirations Patient is here for CPAP titration. Sleep History Ifeanyi Ramon II is a 45 year old man with loud snoring that frequently bothers others. Dr. Hampton notes that he has a history of obstructive sleep apnea, however was not tolerant of PAP therapy. He rarely awakens at night with heartburn, belching or coughing. He does not awaken from sleep feeling short of breath. He denies trouble sleeping with a cold, does not gasp for breath at night, does not have breathing problems at night observed by others. He does not sweat excessively at night or notices heart pounding or beating irregularly night. He does not fall asleep during the day or involuntarily. He never falls asleep while driving. He does not have loss of muscle tone with strong emotion and does not have daytime difficulties due to excessive sleepiness. 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 He does not feel paralyzed on waking or falling asleep, does not have vivid dreamlike scenes upon awakening or falling asleep and does not feel afraid to go to sleep. He does not have nightmares. He does not remember having dreams. He does not have racing thoughts. He does not feel sad or depressed. He rarely feels anxiety. He does not have muscular tension. He does not notice parts of his body jerking. He does not kick at night or have crawling or aching feelings in his legs. He does not have any kind of leg pain at night. He denies morning jaw pain and does not grind his teeth during sleep. He is not bothered by pain during the day or awakened by pain at night. He constantly wakes up feeling stiff in the morning with sore achy muscles and pain in the spine. He has fatigue. He has gained 20 lb in the last year. Normal bedtime is 9:00 p.m. falling asleep within 15 minutes, waking 3-4 times at night to urinate. He will roll over and fall asleep again within minutes. He wakes in the morning at 5:00 a.m.. He estimates 8 hours of sleep at night. Weekend schedule shows he goes to bed 1 hour later, 10:00 p.m. and wakes at 7:00 a.m.. He does not generally take naps. A short nap may be refreshing. He occasionally awakens feeling refreshed. He does not have morning headaches. Habits: Former tobacco use. Caffeine he drinks coffee, tea and soda. No alcohol. [facility] Past Medical History Medical History (Updated 01/14/21 @ 12:44 by Laisha Nichols MD) Acute [place] History of obesity Obstructive sleep apnea (~10/2020) Surgical History Surgical History History of abdominal surgery Family History Family History Mother Patient's mother is in good health Sibling Patient's sister is in good health Father Family history of type 1 diabetes mellitus, Onset Age: 53 Patient's father is Father Diabetes mellitus Social History Social History Smoking packs per day: 2 Smoking cigarettes per day: 40.0 Years smoked: 35 Smoking pack-years: 70.00 Smoking status: Former smoker Tobacco type: cigarettes Alcohol intake: current Drinks per week: 1 Substance use: current Substance use type: marijuana Gender identity (if verbalized by the patient): Male Spiritual care concerns: No Medications Home Medications Medication Instructions Recorded Confirmed Type aspirin [Adult Aspirin Regimen] 81 mg PO DAILY 03/01/20 12/16/20 History isosorbide mononitrate 30 mg PO QAM #30 tablet 03/03/20 12/16/20 Rx
[2021-01-14 12:29] VITALS: BMI 38.6
== END 2020-12-30 07:04 | disposition home or self-care (01) ==
LOC: ANHCSM 08:08
PROVIDERS: PCP Emergency Medicine; Visit Provider Nurse Practitioner Family
DX: G47.33 Obstructive sleep apnea (adult) (pediatric) (principal)
CPT/HCPCS: 95811

== ENCOUNTER 2022-07-28 09:54 | Outpatient (CLI) | payer BC, SELFPAY ==
--- NOTE | ~2022-07-28 | MR_ITS ---
MRI of the lumbar spine Clinical History: Radiculopathy Technique: Axial T2-weighted images, and sagittal T1-weighted, T2-weighted, and T2 fat sat images wer e acquired. COMPARISON: 06/27/2006 Findings: No fracture identified. Stable grade 1 retrolisthesis of L5 over S1. No suspicious bone mar row signal abnormality identified. At L1-L2, there is no disc bulge or herniation. There is minimal facet joint degenerative change. No spinal canal stenosis or neural foraminal narrowing. At L2-L3, there is mild disc desiccation without significant disc bulge or herniation. No spinal kami l stenosis or neural foraminal narrowing. At L3-L4, there is no disc bulge or herniation. No spinal canal stenosis or neural foraminal narrowin g. At L4-L5, there is mild diffuse disc bulge. Probable tiny annular tear noted. No spinal canal stenosi s or definite neural foraminal narrowing. At L5-S1, there is diffuse disc bulge and probable superimposed small central posterior disc protrusi on, with tiny annular tear. No spinal canal stenosis. There is probable mild right neural foraminal c ompromise. Left neural foramen preserved. There are mild facet joint degenerative changes at the leve l. Paravertebral soft tissues are unremarkable. Impression: Mild degenerative spondylosis, as detailed above, probably without significant overall change since p rior exam. Reviewed, dictated and finalized at location [] ENTARY READING SPECIALIST Impression: Mild degenerative spondylosis, as detailed above, probably without significant overall change since prior exam.
--- NOTE | ~2022-07-28 | MR_ITS ---
MRI of the cervical spine Clinical History: Cervicalgia Technique: Axial T2-weighted and gradient images, and sagittal T1-weighted, T2-weighted, and T2 fat-s at images were acquired. Findings: There is no fracture or subluxation of the cervical spine. Vertebral bodies maintain normal height and alignment. No suspicious bone marrow signal abnormality seen. At C2-C3, there is no disc bulge or herniation. No spinal canal stenosis, cord compression, or neural foraminal narrowing. At C3-C4, there is minimal disc bulge. No spinal canal stenosis, cord compression, or neural foramina l narrowing. At C4-C5, there is small central disc protrusion. There is minimal flattening of the ventral cord. No george spinal canal stenosis. Neural foramina are preserved. At C5-C6, there is mild disc bulge posteriorly, with mild effacement of the anterior thecal sac, no f rank cord compression.. Neural foramina are preserved. At C6-C7, there is no disc bulge or herniation. There is no spinal canal stenosis, cord compression, or neural foraminal narrowing. Paravertebral soft tissues are unremarkable. Impression: Mild flattening of the ventral cord at C4-C5 related to small central disc protrusion. Additional minimal degenerative changes, as detailed above. Reviewed, dictated and finalized at location [] RIBUTION CENTER ASSISTANT Impression: Mild flattening of the ventral cord at C4-C5 related to small central disc prot rusion. Additional minimal degenerative changes, as detailed above.
== END 2022-07-28 09:55 ==
PROVIDERS: PCP Student in an Organized Health Care Education/Training Program; Visit Provider Student in an Organized Health Care Education/Training Program
DX: M47.26 Other spondylosis with radiculopathy, lumbar region (principal); M50.20 Other cervical disc displacement, unspecified cervical region
CPT/HCPCS: 72141; 72148

== ENCOUNTER 2023-03-12 13:35 | Outpatient (CLI) | payer BC, SELFPAY ==
--- NOTE | 2023-03-12 | ECHO_ITS ---
Patient Info Name: Ifeanyi Ramon Age: 48 years : 1975 Gender: Male Ht: 74 in Wt: 300 lbs BSA: 2.72 m2 HR: 74 bpm BP: 147 / 91 mmHg Heart Rhythm: Sinus Rhythm Technical Quality: Poor Exam Date: 03/12/2023 1:52 PM Exam Location: [facility] Pulmonary Patient Status: Outpatient Admit Date: 03/12/2023 Staff Ordering Physician: Grey Hampton MD Sharepoint Administrator: Jennifer Coy RDCS Attending Provider: Grey Hampton MD Referring Physician: Memo PARKER; Exam Type: CA echo dop color flow w con Study Info Indications R06.09 - Other forms of dyspnea Complete two-dimensional, color flow and Doppler transthoracic echocardiogram is performed with contrast to opacify the left ventricle and to improve the deliniation of the left ventricle endocardial borders. Contrast/Agitated Saline Contrast/Ag. Saline: Definity Amount: 3.00 ml Administered By: Jennifer Coy RDCS New IV Access: Antecubital Space and Left Site Condition: IV removed, Site dressing applied and No extravasation Reason for Poor Study: patient body habitus Summary 1. Normal left ventricular size with borderline concentric hypertrophy. Good systolic function of all segments. Ejection fraction 65-70%. Normal diastolic function. 2. No pulmonary hypertension, estimated pulmonary arterial systolic pressure is 25 mmHg. 3. No significant valve disease. 4. Technically difficult study, definity echo contrast used. 5. Sinus rhythm with frequent PVCs. Left Ventricle Left ventricular chamber dimension is normal. Left ventricular systolic function is normal, estimated at 65-70%. There is mildly increased left ventricular wall thickness. Left ventricular septal wall motion is normal. The left ventricular diastolic function is normal. Right Ventricle Right ventricular chamber dimension is normal. Right ventricular systolic function is normal. Left Atria Left atrial chamber dimension is normal. Right Atria Right atrial chamber dimension is normal. Aortic Valve The aortic valve is trileaflet. There is no aortic valve sclerosis. There is no aortic valve stenosis. There is no aortic valve regurgitation. Pulmonic Valve The pulmonic valve is normal. There is no pulmonic valve stenosis. There is no pulmonic regurgitation. Mitral Valve The mitral valve has normal leaflets. There is no mitral valve stenosis. There is no mitral valve regurgitation. Tricuspid Valve The tricuspid valve leaflets are normal. There is no significant tricuspid valve stenosis. There is trace tricuspid valve regurgitation. No pulmonary hypertension, estimated pulmonary arterial systolic pressure is 25 mmHg. Pericardium/Pleural The pericardium appears normal. There is no pericardial effusion. Inferior Vena Cava Not well visualized inferior vena cava with >50% collapse upon inspiration consistent with Empty right atrial pressure, 10 mmHg. Aorta The aortic root size at the sinus of Valsalva is normal. The prox ascending aorta size is not well visualized. The abdominal aorta size is not well visualized. Left Ventricular Outflow Tract Name Value Normal LVOT 2D LVOT Diameter 1.97 cm LVOT Doppler LVOT P
[2023-03-12] MEDS: PERFLUTREN LIPID MICROSPHERES 1.5 ML VIAL DILUTED TO 10 ML TOTAL VOLUME IV PUSH (14:30)
== END 2023-03-12 13:36 | disposition home or self-care (01) ==
LOC: ANHCARD 13:36
PROVIDERS: PCP Student in an Organized Health Care Education/Training Program; Visit Provider Internal Medicine Cardiovascular Disease
DX: R06.09 Other forms of dyspnea (principal)
CPT/HCPCS: C8929; Q9957

== ENCOUNTER 2023-07-27 14:22 | Emergency (ER) | payer BC, SELFPAY ==
--- NOTE | ~2023-07-27 | CT_ITS ---
EXAMINATION: CT soft tissue neck chest w DATE: 07/27/2023 16:07 INDICATION: Dysphagia. TECHNIQUE: Computed tomography (CT) of the neck and chest was performed with 75 mL Omnipaque-350 intr avenous contrast. Automated exposure control and iterative reconstruction technique were employed. Th e dose-length product was 1339.94 mGy-cm. COMPARISON: Chest CT 03/01/2020 FINDINGS: CT NECK: There are no pathologically enlarged lymph nodes. There is 0% stenosis of the proximal inter nal carotid arteries relative to normal distal artery lumen diameters. There is mucosal thickening in the paranasal sinuses. The mastoid air cells are normal. There is mild cervical spondylosis. CT CHEST: There is mild emphysema. There is minimal atelectasis bilaterally. No pleural effusion. The heart size is normal. No pericardial effusion. The esophagus is unremarkable. There is diffuse hepat ic steatosis. Again seen is a 2.1 cm mass in left hepatic lobe, likely benign. There is mild thoracic spondylosis. IMPRESSION: 1. Normal esophagus. 2. Mild emphysema. 3. Diffuse hepatic steatosis. Reviewed, dictated and finalized at location A. UNITY MARKETING COORDINATOR
[2023-07-27 14:26] VITALS: BP 165/90; PULSE 94; RESP 20; TEMP 36.6; O2SAT 98
[2023-07-27] MEDS: BELLADONNA ALK/PHENOB ELIX 10 ML, MAG HYDROX/ALUMINUM HYD/SIMETH 30 ML, LIDOCAINE HCL 2... PO (15:15)
[2023-07-27 15:32] LABS: Basophils Absolute Auto 0.1 K/mm3 (0.0-0.1); Basophils Percent Auto 0.7 % (0.2-1.2); Eosinophils Absolute Auto 0.2 K/mm3 (0-0.3); Eosinophils Percent Auto 1.7 % (0-4.4); Hematocrit 43.9 % (42.0-52.0); Hemoglobin 15.1 g/dL (14.0-18.0); Immature Granulocyte Absolute 0.09 K/mm3 (0.00-0.031); Immature Granulocyte Percent A 0.7 % (0-0.5); Lymphocytes Absolute Auto 3.49 K/mm3 (0.9-3.2); Lymphocytes Percent Auto 26.5 % (18.3-44.2); Mean Corpuscular HGB Conc 34.4 g/dl (32-36); Mean Corpuscular Hemoglobin 29.3 pg (26-34); Mean Corpuscular Volume 85.1 fl (80-100); Mean Platelet Volume 10.6 fl (7.4-10.4); Monocytes Percent Auto 7.7 % (2.6-8.5); Neutrophils Absolute Auto 8.3 K/mm3 (1.3-6.7); Neutrophils Percent Auto 62.7 % (45.5-73.1); Platelet Count Result 260 k/mm3 (150-375); Red Blood Count 5.16 M/mm3 (4.6-6.20); Red Cell Distribution Width 13.3 % (11.5-14.5); White Blood Count 13.2 K/mm3 (4.5-10.0)
[2023-07-27 15:43] LABS: Lactic Acid Reflex 1.6 mmol/L (0.7-2.0)
[2023-07-27 15:50] LABS: Alanine Aminotransferase 45 U/L (6-50); Albumin Level 4.5 g/dL (3.5-5.1); Alkaline Phosphatase 55 U/L (38-126); Anion Gap 9 mmol/L (8-16); Aspartate Amino Transferase 38 U/L (17-59); Bilirubin,Total 0.7 mg/dL (0.2-1.3); Blood Urea Nitrogen 9 mg/dL (9-20); Carbon Dioxide 25 mmol/L (22-30); Chloride 107 mmol/L (98-107); Estimated CRCL calculation 146 ml/min; Estimated Glomerular Filt Rate > 60; Glucose 98 mg/dL (65-110); Sodium 141 mmol/L (137-145)
--- NOTE | 2023-07-27 16:01 | ED.GENADULT ---
HPI - General Adult General Chief complaint: Unspecified Stated complaint: difficulty swallowing Time Seen by Provider: 07/27/23 14:39 History of Present Illness HPI narrative: 48-year-old male presenting to the emergency department for evaluation of sore throat. Patient does admit to drinking alcohol last night and patient did have some emesis this morning. Patient feels like he has an object in his throat that is not passing. Patient is able to handle his own secretions and patient has been drinking liquids without issue. Patient denies any associated chest pain with this. Patient denies any hematemesis. Related Data Home Medications Medication Instructions Recorded Confirmed aspirin 81 mg tablet,delayed 81 mg PO DAILY 03/01/20 12/16/20 release (Adult Aspirin Regimen) Allergies Allergy/AdvReac Type Severity Reaction Status Date / Time No Known Allergies Allergy Verified 07/27/23 14:24 Review of Systems Review of Systems: All systems reviewed & are unremarkable except as noted in HPI and below PMFSH Past Medical History Medical History (Updated 07/27/23 @ 17:23 by Venancio Goldberg MD) Acute [place] History of obesity Obstructive sleep apnea (~10/2020) Surgical History Surgical History History of abdominal surgery Family History Family History Mother Patient's mother is in good health Sibling Patient's sister is in good health Father Family history of type 1 diabetes mellitus, Onset Age: 53 Patient's father is Father Diabetes mellitus Social History Social History Smoking packs per day: 2 Smoking cigarettes per day: 40.0 Years smoked: 35 Smoking pack-years: 70.00 Smoking status: Former smoker Tobacco type: cigarettes Alcohol intake: current Drinks per week: 1 Substance use: current Substance use type: marijuana Gender identity (if verbalized by the patient): Male Spiritual care concerns: No Exam Narrative: APPEARANCE: Uncomfortable appearing during swallowing HEAD: normocephalic, atraumatic. EYES: PERRLA/EOMI, conjunctivae clear. NOSE: Normal no drainage EARS:TMS clear with good light reflex. THROAT: Pharynx clear, no exudate. NECK: Supple. No adenopathy, no masses. RESPIRATORY: Airway patent, respirations nonlabored. Clear to auscultation bilaterally, no rales, rhonchi, wheezing. CARDIOVASCULAR: Regular rate and rhythm without murmurs rubs or gallops. ABDOMINAL: Soft, nontender, nondistended, normal bowel sounds MUSCULOSKELETAL: Moves all extremities. Strength/ROM intact, No edema, No calf tenderness. NEURO: Alert. Cranial nerves II through XII intact. Good gait. Good coordination SKIN: Warm, dry. Normal Color Course Course Emergency Course: 48-year-old male presenting to the emergency department for evaluation of a sore throat. Patient states that he is still able to handle his secretions but does not feel that his throat was improved with any treatment in the emergency department. GI cocktail did not help. Patient is afebrile but does have a leukocytosis of 13.2. Hemoglobin is 15.1. No significant abnormalities on his CMP and patient does not have an elevated lactic acid. CT of the neck and chest showed normal esophagus with no evidence of esophageal rupture. Patient's symptoms are consistent with esophagitis. Patient was started on Prilosec, provided medications for pain control, treated with a dose of Decadron and provided follow-up with GI. Patient was updated on results of his workup the patient was encouraged to return to the emergency department if any worsening symptoms. All questions and concerns were addressed. Vital Signs Vital signs: Vital Signs Temperature 98 F 07/27/23 14:26 Pulse Rate 94 07/27/23 14:26 Respiratory Rate 20
[2023-07-27] MEDS: MORPHINE SULFATE (*CRX) 2 MG/ML INJ IV PUSH (17:35)
[2023-07-27] MEDS: PANTOPRAZOLE SODIUM IV 40 MG VIAL IV PUSH (17:35)
[2023-07-27 17:51] VITALS: BP 155/98; PULSE 76; RESP 17; O2SAT 100
== END 2023-07-27 17:52 | disposition home or self-care (01) ==
PROVIDERS: Emergency Provider Emergency Medicine; PCP Student in an Organized Health Care Education/Training Program
DX: R13.10 Dysphagia, unspecified (principal); I25.2 Old myocardial infarction; G47.33 Obstructive sleep apnea (adult) (pediatric); E66.9 Obesity, unspecified; Z68.41 Body mass index [BMI] 40.0-44.9, adult; Z87.891 Personal history of nicotine dependence; K76.0 Fatty (change of) liver, not elsewhere classified; J43.9 Emphysema, unspecified; Z79.82 Long term (current) use of aspirin
CPT/HCPCS: 36415; 70491; 71260; 80053; 83605; 85025; 96374; 96375; 99284; A9270; C9113; J1100; J2270; Q9967